=== PATIENT | female | born 1960 | race Native Hawaiian/Other Pacific Islander ===

== ENCOUNTER 2019-03-01 10:00 | Outpatient (CLI) | payer OTHER ==
[2019-03-01 10:20] LABS: POTASSIUM 3.7 mmol/L (3.6-5.2)
== END 2019-03-01 21:01 | disposition home or self-care (01) ==
LOC: LABW 10:00
PROVIDERS: Nurse Practitioner Adult Health
DX: I25.10 Atherosclerotic heart disease of native coronary artery without angina pectoris (principal); Z79.899 Other long term (current) drug therapy; I50.9 Heart failure, unspecified
CPT/HCPCS: 36415; 80048